=== PATIENT | female | born 1955 | race Caucasian/White ===

== ENCOUNTER → 2019-08-29 | Outpatient (CLI) | payer OTHER ==
[~2019-08-29] MED LIST: ALBU90I INH; ALBU90OI INH; ALBU90OI61 INH; ATOR10 PO; AZIT250 PO; CYCL10 PO; ERYT500 PO; GABA100 PO; GEMF600; HYDACE5 PO; HYDHOMSY PO; HYDR1TAB94 PO; IBUHYD PO; IBUP400 PO; IBUP800 PO; MORP15ER PO; OXYACE5T PO; PRAV10 PO; PRED20 PO; RXHYDACE PO; RXPROM25S PR; TRAM50 PO; TRAZ50 PO; VICODIN HP 10-1 EACH PO
== END ==
LOC: EDSTATUS 11:04 → LAB SHORT 14:00 → LAB EV 14:00
DX: Z51.81 Encounter for therapeutic drug level monitoring (principal); Z79.899 Other long term (current) drug therapy
CPT/HCPCS: G0480

== ENCOUNTER → 2019-10-13 | Outpatient (CLI) | payer OTHER | LOC: LAB SHORT 10:38 → LAB EV 10:38 | DX: F41.1 Generalized anxiety disorder (principal) | CPT/HCPCS: G0480 ==

== ENCOUNTER 2022-01-08 10:16 | Day surgery (SDC) | payer MEDICARE, OTHER ==
[~2022-01-08] VITALS: Ht 167.6 cm; Wt 95.1 kg
[~2022-01-08 10:16] MED LIST changes: +ATORVASTATIN CA20 MG; +ONDA4ODT MM
[2022-01-08] MEDS ORDERED: FAMO10 (10:41)
[2022-01-08] MEDS ORDERED: BACL10 (10:41)
[2022-01-08] MEDS ORDERED: ALBU90OI (10:41)
[2022-01-08] MEDS ORDERED: VITAMIN D5000 UNIT (10:41)
[2022-01-08] MEDS ORDERED: METF500 (10:42)
[2022-01-08] MEDS ORDERED: ONDA4ODT (10:42)
[2022-01-08] MEDS ORDERED: Prinivil10 MG (10:42)
[2022-01-08] MEDS ORDERED: OMEP20ER (10:42)
[2022-01-08] MEDS ORDERED: BUDESONIDE1 MG/2 M1 (10:42)
[2022-01-08] MEDS ORDERED: TRAZ100 (10:42)
== END 2022-01-08 12:31 | disposition home or self-care (01) ==
LOC: ORSCSDS 10:16
PROVIDERS: Internal Medicine Gastroenterology
PROC: 0DBH8ZX Excision of Cecum, Via Natural or Artificial Opening Endoscopic, Diagnostic (ICD-10-PCS; principal; 2022-01-08 11:30)
PROC: 0DBN8ZX Excision of Sigmoid Colon, Via Natural or Artificial Opening Endoscopic, Diagnostic (ICD-10-PCS; principal; 2022-01-08 11:30)
PROC: 0DBK8ZX Excision of Ascending Colon, Via Natural or Artificial Opening Endoscopic, Diagnostic (ICD-10-PCS; principal; 2022-01-08 11:30)
DX: R10.32 Left lower quadrant pain (principal); D12.0 Benign neoplasm of cecum; D12.2 Benign neoplasm of ascending colon; D12.5 Benign neoplasm of sigmoid colon; K64.8 Other hemorrhoids; K57.30 Diverticulosis of large intestine without perforation or abscess without bleeding; R93.3 Abnormal findings on diagnostic imaging of other parts of digestive tract; R11.0 Nausea; Z80.0 Family history of malignant neoplasm of digestive organs; R73.03 Prediabetes; I10 Essential (primary) hypertension; F32.A Depression, unspecified; Z79.84 Long term (current) use of oral hypoglycemic drugs; Z79.51 Long term (current) use of inhaled steroids; Z79.899 Other long term (current) drug therapy; F17.210 Nicotine dependence, cigarettes, uncomplicated
CPT/HCPCS: 82947; 88305; J2405; J2704; J7120

== ENCOUNTER 2023-04-20 09:33 | Day surgery (SDC) | payer OTHER ==
[~2023-04-20] VITALS: Ht 167.6 cm; Wt 80.1 kg
[~2023-04-20 09:33] MED LIST changes: +ALBU90OI; +ALPR1 PO; +ANORO ELLIPTA1 EACH INH; +BACL10; +BUDESONIDE1 MG/2 M1; +CeFAZolin Sodium 2,000 MG in NS 50 ML IV SCH; +FAMO10; +Flonase 0.05% N16 GM; +LORA10ER PO; +Lactated Ringer's 1,000 ML IV SCH; +METF500; +NAPR220 PO; +OMEP20ER; +ONDA4ODT; +Prinivil10 MG; +Pulmicort Fle180 MCG INH; +TIZA4 PO; +TOCO1000 PO; +TRAZ100; +VITAMIN D5000 UNIT; +[UNRECOGNIZED DRUG - OTHER] PO
[2023-04-20] MEDS ORDERED: Bupivacaine 0.5% HCl 5 MG/ML 30MLVIAL ONE (10:28)
[2023-04-20] MEDS ORDERED: FentaNYL Citrate 50 MCG/ML 2 ML Injection ONE (10:38)
[2023-04-20] MEDS ORDERED: Lidocaine HCl 1% 30 ML SDV ONE (10:38)
--- NOTE | 2023-04-20 10:38 | NUR ---
Ambulatory in Day SurgeryPre-Op teaching done. Pt verbalizes understanding. History, Chart, Medications and Allergies reviewed before start of procedure.Patient confirms NPO status and agrees with scheduled surgery. Patient States Post-Procedure ride home has been arranged.
[2023-04-20] MEDS ORDERED: propofoL 20 ML IV ONE (10:39)
[2023-04-20 10:45] LABS: BASOPHILS ABSOLUTE AUTO 0.06 K/mm3 (0.00-0.23); BASOPHILS PERCENT AUTO 0 % (0-2); EOSINOPHILS ABSOLUTE AUTO 0.18 K/mm3 (0.00-0.68); EOSINOPHILS PERCENT AUTO 1 % (0-6); Hematocrit 43.9 % (33.0-51.0); Hemoglobin 15.1 g/dL (11.5-16.0); IMMATURE GRAN ABSOLUTE AUTO 0.08 K/mm3 (0.00-0.10); IMMATURE GRAN PERCENT AUTO 1 % (0-1); LYMPHOCYTES ABSOLUTE AUTO 3.27 K/mm3 (0.84-5.20); LYMPHOCYTES PERCENT AUTO 20 % (21-46); MONOCYTES ABSOLUTE AUTO 1.09 K/mm3 (0.16-1.47); MONOCYTES PERCENT AUTO 7 % (4-13); Mean Corpuscular HGB 30.6 pg (26.0-34.0); Mean Corpuscular HGB Conc 34.4 g/dL (31.5-36.5); Mean Corpuscular Volume 89 fL (80-100); Mean Platelet Volume 10.8 fL (9.1-12.4); NEUTROPHILS ABSOLUTE AUTO 11.76 K/mm3 (1.96-9.15); NEUTROPHILS PERCENT AUTO 72 % (41-73); Platelet Count 277 K/mm3 (150-400); RDW Coefficient Variation 12.3 % (11.7-14.2); RDW Standard Deviation 40.2 fL (35.1-46.3); Red Blood Cell Count 4.93 M/mm3 (3.80-5.20); White Blood Cell Count 16.44 K/mm3 (4.00-11.30)
[2023-04-20 11:03] LABS: Bun/Creatinine Ratio 20.3 (12.0-20.0); Calcium, Blood 8.9 mg/dL (8.5-10.1); Creatinine, Blood 0.64 mg/dL (0.40-1.00); Potassium, Blood 3.9 mmol/L (3.5-5.5)
[2023-04-20 11:25] VITALS: BP 126/75
[2023-04-20 11:45] VITALS: BP 139/66
--- NOTE | 2023-04-20 12:01 | NUR ---
Patient up to Ambulate independently. Gait steady. Discharge instructions reviewed with patient. Patient verbalizes understanding. Copy given to patient to take home.Pt discharged to home, out via wheelchair with belongings and rx on hand.
== END 2023-04-20 12:01 | disposition home or self-care (01) ==
LOC: ORSCMMR 09:33 → ORD 11:00 → ORSCMMR 12:01
PROVIDERS: Surgery
PROC: 0JB70ZZ Excision of Back Subcutaneous Tissue and Fascia, Open Approach (ICD-10-PCS; principal; 2023-04-20 11:00)
DX: D21.3 Benign neoplasm of connective and other soft tissue of thorax (principal); F32.A Depression, unspecified; I10 Essential (primary) hypertension; E11.9 Type 2 diabetes mellitus without complications; J45.909 Unspecified asthma, uncomplicated; Z79.899 Other long term (current) drug therapy; F17.210 Nicotine dependence, cigarettes, uncomplicated
CPT/HCPCS: 80048; 82947; 85025; 88304; 93005; 93010; J0690; J2704; J3010; J7120

== ENCOUNTER → 2023-07-08 | Outpatient (CLI) | payer OTHER ==
[~2023-07-08] MED LIST changes: -CeFAZolin Sodium 2,000 MG in NS 50 ML IV SCH; -Lactated Ringer's 1,000 ML IV SCH
[2023-07-08 13:45] LABS: BASOPHILS PERCENT AUTO 1 % (0-2); EOSINOPHILS ABSOLUTE AUTO 0.23 K/mm3 (0.00-0.68); EOSINOPHILS PERCENT AUTO 2 % (0-6); Hematocrit 44.5 % (33.0-51.0); Hemoglobin 14.8 g/dL (11.5-16.0); IMMATURE GRAN ABSOLUTE AUTO 0.05 K/mm3 (0.00-0.10); IMMATURE GRAN PERCENT AUTO 1 % (0-1); LYMPHOCYTES ABSOLUTE AUTO 3.07 K/mm3 (0.84-5.20); LYMPHOCYTES PERCENT AUTO 28 % (21-46); MONOCYTES ABSOLUTE AUTO 0.77 K/mm3 (0.16-1.47); MONOCYTES PERCENT AUTO 7 % (4-13); Mean Corpuscular HGB 30.4 pg (26.0-34.0); Mean Corpuscular HGB Conc 33.3 g/dL (31.5-36.5); Mean Corpuscular Volume 91 fL (80-100); NEUTROPHILS ABSOLUTE AUTO 6.69 K/mm3 (1.96-9.15); NEUTROPHILS PERCENT AUTO 61 % (41-73); Platelet Count 303 K/mm3 (150-400); RDW Coefficient Variation 13.3 % (11.7-14.2); RDW Standard Deviation 45.5 fL (35.1-46.3); Red Blood Cell Count 4.87 M/mm3 (3.80-5.20); White Blood Cell Count 10.91 K/mm3 (4.00-11.30)
[2023-07-08 14:25] LABS: Alanine Aminotransfer (ALT/SGP 18 U/L (12-78); Albumin, Blood 3.6 g/dL (3.4-5.0); Albumin/Globulin Ratio 1.1 (0.8-1.8); Alk Phos 96 U/L (50-136); Anion Gap 9 mmol/L (3-11); Aspartate Aminotrans (AST/SGOT 11 U/L (12-37); Bilirubin, Total 0.4 mg/dL (0.1-1.0); Blood Urea Nitrogen 11 mg/dL (8-24); Bun/Creatinine Ratio 17.5 (12.0-20.0); CHOL/HDL RATIO 4.8; CO2, Blood 24 mmol/L (21-32); Calcium, Blood 9.4 mg/dL (8.5-10.1); Chloride, Blood 109 mmol/L (98-108); Cholesterol 218 mg/dL (50-200); Creatinine, Blood 0.63 mg/dL (0.40-1.00); Globulin, Blood 3.3 g/dL (2.2-4.0); Glomerular Filtration Rate 97 (60-); Glucose, Blood 112 mg/dL (70-99); HDL Cholesterol 45 mg/dL (>39); LDL/HDL RATIO 3.3; Low Density Lipoprotein Chol 149 mg/dL (0-110); Sodium, Blood 138 mmol/L (136-145); Total Protein, Blood 6.9 g/dL (6.4-8.2); Triglycerides 120 mg/dL (30-160); Very Low Density Lipoprot Chol 24 mg/dL (6-32)
== END ==
LOC: LAB EV 12:27 → LAB SHORT 12:27
PROVIDERS: Physician Assistant
DX: E11.9 Type 2 diabetes mellitus without complications (principal)
CPT/HCPCS: 80053; 80061; 83036; 85025

== ENCOUNTER → 2023-11-06 | Outpatient (CLI) | payer OTHER ==
[2023-11-06 14:52] LABS: CHOL/HDL RATIO 2.5; Cholesterol 133 mg/dL (50-200); HDL Cholesterol 54 mg/dL (>39); LDL/HDL RATIO 1.2; Low Density Lipoprotein Chol 64 mg/dL (0-110); Triglycerides 77 mg/dL (30-160); Very Low Density Lipoprot Chol 15 mg/dL (6-32)
== END ==
LOC: LAB 11:35 → LAB SHORT 11:35
PROVIDERS: Physician Assistant
DX: E78.5 Hyperlipidemia, unspecified (principal)
CPT/HCPCS: 80061

== ENCOUNTER 2024-01-20 08:40 | Emergency (ER) | payer OTHER ==
[~2024-01-20] VITALS: Ht 165.1 cm; Wt 65.8 kg
[2024-01-20] MEDS ORDERED: Cyclobenzaprine HCl 10 MG Tab PO ONE (09:20)
[2024-01-20] MEDS ORDERED: Ketorolac Tromethamine 30mg Vial IM ONE (09:20)
[2024-01-20] MEDS ORDERED: Lidocaine 4% 1 Patch TOP ONE (09:20)
[2024-01-20] MEDS ORDERED: LIDO700A20 TOP (10:10)
[2024-01-20] MEDS ORDERED: CYCL10 PO (10:10)
[2024-01-20 10:16] VITALS: BP 119/87
== END 2024-01-20 10:26 | disposition home or self-care (01) ==
LOC: ER 08:40
DX: M54.6 Pain in thoracic spine (principal); G89.29 Other chronic pain; E78.5 Hyperlipidemia, unspecified; I10 Essential (primary) hypertension; F17.210 Nicotine dependence, cigarettes, uncomplicated; Z79.51 Long term (current) use of inhaled steroids; Z79.899 Other long term (current) drug therapy; Z79.52 Long term (current) use of systemic steroids; Z88.0 Allergy status to penicillin; Z88.1 Allergy status to other antibiotic agents; Z91.030 Bee allergy status
CPT/HCPCS: 72070; 96372; 99283-25; A9270; J1885

== ENCOUNTER → 2024-01-25 | Outpatient (CLI) | payer OTHER ==
[~2024-01-25] MED LIST changes: +LIDO700A20 TOP
[2024-01-25 12:13] LABS: BASOPHILS ABSOLUTE AUTO 0.09 K/mm3 (0.00-0.23); BASOPHILS PERCENT AUTO 1 % (0-2); EOSINOPHILS ABSOLUTE AUTO 0.27 K/mm3 (0.00-0.68); EOSINOPHILS PERCENT AUTO 2 % (0-6); Hematocrit 44.1 % (33.0-51.0); Hemoglobin 15.2 g/dL (11.5-16.0); IMMATURE GRAN ABSOLUTE AUTO 0.06 K/mm3 (0.00-0.10); IMMATURE GRAN PERCENT AUTO 1 % (0-1); LYMPHOCYTES PERCENT AUTO 29 % (21-46); MONOCYTES ABSOLUTE AUTO 0.84 K/mm3 (0.16-1.47); MONOCYTES PERCENT AUTO 7 % (4-13); Mean Corpuscular HGB 31.1 pg (26.0-34.0); Mean Corpuscular HGB Conc 34.5 g/dL (31.5-36.5); Mean Corpuscular Volume 90 fL (80-100); Mean Platelet Volume 10.6 fL (9.1-12.4); NEUTROPHILS ABSOLUTE AUTO 6.96 K/mm3 (1.96-9.15); NEUTROPHILS PERCENT AUTO 60 % (41-73); Platelet Count 265 K/mm3 (150-400); RDW Coefficient Variation 13.2 % (11.7-14.2); RDW Standard Deviation 44.4 fL (35.1-46.3); Red Blood Cell Count 4.88 M/mm3 (3.80-5.20); White Blood Cell Count 11.62 K/mm3 (4.00-11.30)
[2024-01-25 13:22] LABS: Albumin, Blood 3.4 g/dL (3.4-5.0); Bilirubin, Total 0.7 mg/dL (0.1-1.0); Bun/Creatinine Ratio 28.7 (12.0-20.0); Calcium, Blood 8.6 mg/dL (8.5-10.1); Creatinine, Blood 0.56 mg/dL (0.40-1.00); Globulin, Blood 3.4 g/dL (2.2-4.0); Potassium, Blood 3.9 mmol/L (3.5-5.5); Total Protein, Blood 6.8 g/dL (6.4-8.2)
[2024-01-26 17:21] LABS: HIV 1,2 COMBO ANTIGEN/ANTIBODY Negative (Negative)
[2024-01-26 17:57] LABS: HEPATITIS C AB CIA INTERP Negative (Negative); HEPATITIS C ANTIBODY CIA INDEX 0.08 IV
== END ==
LOC: LAB SHORT 10:48 → LAB 10:48
PROVIDERS: Family Medicine
DX: Z11.4 Encounter for screening for human immunodeficiency virus [HIV] (principal); Z11.59 Encounter for screening for other viral diseases; Z79.899 Other long term (current) drug therapy
CPT/HCPCS: 80053; 85025; 86803; 87389

== ENCOUNTER 2024-05-05 06:28 | Day surgery (SDC) | payer OTHER ==
[~2024-05-05] VITALS: Ht 167.6 cm; Wt 72.0 kg
[~2024-05-05 06:28] MED LIST changes: +ALPR1; +Balanced Salt Epinephrine Irrigation Solution 500 mL IR SCH; +CALCIUM 500-VI1 EAC4 PO; +Diazepam 5 MG Tab PO PRN; +Diazepam 5 MG Tab PO SCH; +FAMO20; +FLONASE SENSIM5.9 M1; +LORA10ER; +Lidocaine HCl/Pf 1% 5 ML VIAL XX SCH; +Moxifloxacin HCL 0.5 MG/0.1 ML 0.4MLSYR LEFTEYE SCH; +Norco 5-325 Ta1 EACH PO; +ONDA4ODT SL; +ONE-A-DAY WOME0.4 MG PO; +Ondansetron 4 MG SoluTab MM PRN; +PHENYLEPHRINE\\TROPICAMIDE\\TETRACAINE OPHTHALMIC DILATING SOLN LEFTEYE PRN; +Povidone-Iodine 450 DROP/30 ML Solution LEFTEYE SCH; +Povidone-Iodine 450 DROP/30 ML Solution ONE; +TIZANIDINE HCL2 M1 PO; -TRAZ100; +TRAZ100 PO; +Tetracaine HCl/Pf 0.5% Opth Soln 4 ml ONE; +Triamcinolone Inj Susp 40 MG / ML 1ML Vial INJ SCH; +VITAMIN E
[2024-05-05] MEDS ORDERED: Triamcinolone Inj Susp 40 MG / ML 1ML Vial ONE (06:34)
[2024-05-05] MEDS ORDERED: Lidocaine HCl/Pf 1% 5 ML VIAL ONE (06:34)
[2024-05-05] MEDS ORDERED: Diazepam 10 MG Tab ONE (06:50)
[2024-05-05] MEDS ORDERED: Ondansetron HCl 2 MG / ML 2ML Vial ONE (07:50)
[2024-05-05 08:18] VITALS: BP 126/89
[2024-05-05] MEDS ORDERED: Acetaminophen 500 MG Tab ONE (08:18)
== END 2024-05-05 08:39 | disposition home or self-care (01) ==
LOC: ORSCSDS 06:28
PROVIDERS: Ophthalmology
PROC: 08RK3JZ Replacement of Left Lens with Synthetic Substitute, Percutaneous Approach (ICD-10-PCS; principal; 2024-05-05 08:00)
DX: E11.36 Type 2 diabetes mellitus with diabetic cataract (principal); H25.813 Combined forms of age-related cataract, bilateral; H21.81 Floppy iris syndrome; F17.210 Nicotine dependence, cigarettes, uncomplicated; I10 Essential (primary) hypertension; E78.5 Hyperlipidemia, unspecified; F32.A Depression, unspecified; Z79.899 Other long term (current) drug therapy
CPT/HCPCS: 82947; A9270; J2003; J2405; J3301; V2632

== ENCOUNTER 2024-05-12 06:36 | Day surgery (SDC) | payer OTHER ==
[~2024-05-12] VITALS: Ht 167.6 cm; Wt 71.7 kg
[~2024-05-12 06:36] MED LIST changes: +Lidocaine HCl/Pf 1% 5 ML VIAL ONE; -Moxifloxacin HCL 0.5 MG/0.1 ML 0.4MLSYR LEFTEYE SCH; +Moxifloxacin HCL 0.5 MG/0.1 ML 0.4MLSYR RIGHTEYE SCH; -PHENYLEPHRINE\\TROPICAMIDE\\TETRACAINE OPHTHALMIC DILATING SOLN LEFTEYE PRN; +PHENYLEPHRINE\\TROPICAMIDE\\TETRACAINE OPHTHALMIC DILATING SOLN RIGHTEYE PRN; -Povidone-Iodine 450 DROP/30 ML Solution LEFTEYE SCH; +Povidone-Iodine 450 DROP/30 ML Solution RIGHTEYE SCH; +Triamcinolone Inj Susp 40 MG / ML 1ML Vial ONE
[2024-05-12] MEDS ORDERED: IBUP600 (07:05)
[2024-05-12] MEDS ORDERED: Midazolam HCl 1MG / ML 2ML Vial ONE (07:50)
[2024-05-12] MEDS ORDERED: FentaNYL Citrate 50 MCG/ML 2 ML Injection ONE (07:53)
[2024-05-12 08:21] VITALS: BP 98/61
== END 2024-05-12 08:34 | disposition home or self-care (01) ==
LOC: ORSCSDS 06:36
PROVIDERS: Ophthalmology
PROC: 08RJ3JZ Replacement of Right Lens with Synthetic Substitute, Percutaneous Approach (ICD-10-PCS; principal; 2024-05-12 08:00)
DX: E11.36 Type 2 diabetes mellitus with diabetic cataract (principal); H25.811 Combined forms of age-related cataract, right eye; Z96.1 Presence of intraocular lens; I10 Essential (primary) hypertension; F41.9 Anxiety disorder, unspecified; F32.A Depression, unspecified; J45.909 Unspecified asthma, uncomplicated; E78.5 Hyperlipidemia, unspecified; F17.210 Nicotine dependence, cigarettes, uncomplicated; Z79.899 Other long term (current) drug therapy
CPT/HCPCS: 82947; J2003; J2250; J3010; J3301; V2632

== ENCOUNTER → 2024-06-02 | Outpatient (CLI) | payer OTHER ==
[~2024-06-02] MED LIST changes: -Balanced Salt Epinephrine Irrigation Solution 500 mL IR SCH; -Diazepam 5 MG Tab PO PRN; -Diazepam 5 MG Tab PO SCH; +IBUP600; -Lidocaine HCl/Pf 1% 5 ML VIAL ONE; -Lidocaine HCl/Pf 1% 5 ML VIAL XX SCH; -Moxifloxacin HCL 0.5 MG/0.1 ML 0.4MLSYR RIGHTEYE SCH; -Ondansetron 4 MG SoluTab MM PRN; -PHENYLEPHRINE\\TROPICAMIDE\\TETRACAINE OPHTHALMIC DILATING SOLN RIGHTEYE PRN; -Povidone-Iodine 450 DROP/30 ML Solution ONE; -Povidone-Iodine 450 DROP/30 ML Solution RIGHTEYE SCH; -Tetracaine HCl/Pf 0.5% Opth Soln 4 ml ONE; -Triamcinolone Inj Susp 40 MG / ML 1ML Vial INJ SCH; -Triamcinolone Inj Susp 40 MG / ML 1ML Vial ONE
== END ==
LOC: LAB 17:30 → LAB SHORT 17:30
DX: E89.0 Postprocedural hypothyroidism (principal); Z79.899 Other long term (current) drug therapy
CPT/HCPCS: 84443

== ENCOUNTER → 2024-10-28 | Outpatient (CLI) | payer OTHER | LOC: LAB SHORT 15:58 → LAB 15:58 | DX: R30.0 Dysuria (principal) | CPT/HCPCS: 87086 ==

== ENCOUNTER 2024-12-05 08:21 | Day surgery (SDC) | payer OTHER ==
[~2024-12-05] VITALS: Ht 198.1 cm; Wt 77.6 kg
[2024-12-05] VITALS (10 sets, daily range): BP systolic 130–176; BP diastolic 59–83
[~2024-12-05 08:21] MED LIST changes: +FAMO20 PO
[2024-12-05] MEDS ORDERED: NS 500 ML IV ONE (08:43)
[2024-12-05] MEDS ORDERED: NS 1,000 ML IV ONE ×3 (08:44→12:43)
[2024-12-05] MEDS ORDERED: Nitroglycerin 2 MG/20 ML BTL ONE (08:44)
[2024-12-05] MEDS ORDERED: Heparin Sodium 1000 Units/ML 10ML MDV ONE ×3 (08:44→13:50)
[2024-12-05] MEDS ORDERED: IBUP600 PO (08:49)
[2024-12-05] MEDS ORDERED: KETO.5OPSO BOTHEYES (08:49)
[2024-12-05] MEDS ORDERED: METO25ER PO (08:50)
[2024-12-05] MEDS ORDERED: OCUFLOX511 (08:50)
[2024-12-05] MEDS ORDERED: Midazolam HCl 1MG / ML 2ML Vial ONE ×3 (12:02→14:02)
[2024-12-05] MEDS ORDERED: FentaNYL Citrate 50 MCG/ML 2 ML Injection ONE ×4 (12:02→14:49)
[2024-12-05] MEDS ORDERED: Verapamil HCL 2.5 MG/ML 2ML Injection ONE (12:55)
[2024-12-05] MEDS ORDERED: HydrALAZINE HCl 20 MG / ML 1ML Vial ONE (14:33)
[2024-12-05] MEDS ORDERED: Protamine Sulfate 50 MG Amp ONE (14:52)
[2024-12-05] MEDS ORDERED: Aspir 8181 MG PO (16:00)
[2024-12-05] MEDS ORDERED: CLOP75 PO (16:01)
--- NOTE | 2024-12-05 16:32 | NUR ---
FOLLOWED PT BACK FROM PROCEDURE. BILATERAL GROIN SITES STABLE. L WRIST SITE STABLE.
--- NOTE | 2024-12-05 16:57 | NUR ---
started to take air from tr band, no bleeding noted. 2cc taken out
--- NOTE | 2024-12-05 17:06 | NUR ---
2 more cc's of air released. no bleeding noted.
--- NOTE | 2024-12-05 17:09 | NUR ---
hob elevated to 30 degrees. bilateral groin sites stable.
--- NOTE | 2024-12-05 17:28 | NUR ---
all remaining air released from tr band, no bleeding noted. pt hooked up to purewick at this time. bilateral groin sites remain stable.
--- NOTE | 2024-12-05 17:46 | NUR ---
dr aikened to be discharged around 6:15. pt up and to bathroom. both groin sites stable. l wrist site remains stable.
--- NOTE | 2024-12-05 18:01 | NUR ---
pt dressed with assist of 1. pt became a little nauseated, but felt better after emesis. saline lock removed with catheter intact. tr band removed and cloth dot dressing applied. pt placed in arm sling so she would remember not to use that hand. discharge instructions reviewed with pt, verbalizes understanding of instructions. both groin sites remain stable. pt to w/c and wheeled to private vehicle with one staff.
== END 2024-12-05 18:15 | disposition home or self-care (01) ==
LOC: MHTC 08:21
DX: I74.5 Embolism and thrombosis of iliac artery (principal); I70.211 Atherosclerosis of native arteries of extremities with intermittent claudication, right leg; I10 Essential (primary) hypertension; J45.909 Unspecified asthma, uncomplicated; E11.51 Type 2 diabetes mellitus with diabetic peripheral angiopathy without gangrene; F17.210 Nicotine dependence, cigarettes, uncomplicated; Z79.899 Other long term (current) drug therapy; Z88.0 Allergy status to penicillin; Z88.1 Allergy status to other antibiotic agents
CPT/HCPCS: 36140; 37252; 75716; 76937; 85347; 99152; 99153; A9270; C1725; C1753; C1769; C1874; C1887; C1894; C9765; J0360; J1644; J2250; J2720; J3010; J7030; J7050; Q9967